=== PATIENT | male | born 1960 | race African-American/Black ===

== ENCOUNTER 2020-05-24 17:31 | Emergency (ER) | payer MEDICARE, MEDICAID ==
[~2020-05-24] VITALS: Ht 177.8 cm; Wt 95.3 kg
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
[2020-05-24 17:54] VITALS: BP 127/88
[2020-05-24] MEDS ORDERED: Acetaminophen 500mg (ES) tab ORAL ONE (18:00)
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
[2020-05-24] MEDS ORDERED: TYLENOL325 MG ORAL (18:23)
[2020-05-24] MEDS ORDERED: IBUPROFEN600 M1 ORAL (18:23)
--- NOTE | 2020-05-24 18:50 | Diagnostic Imaging Report ---
EXAM: CT Head Without Intravenous Contrast CLINICAL HISTORY: H/A TECHNIQUE: Axial computed tomography images of the head/brain without intravenous contrast. CTDI is 53.4 mGy and DLP is 992.1 mGy-cm. One or more of the following dose reduction techniques were used: automated exposure control, adjustment of the mA and/or kV according to patient size, use of iterative reconstruction technique. COMPARISON: No relevant prior studies available. FINDINGS: Brain: No hemorrhage, edema or evidence of mass-effect. No significant white matter disease. Ventricles: No ventriculomegaly. Bones/joints: Partially visualized chronic left medial orbital wall fracture with slight herniation of the medial left rectus muscle through the fracture defect (coronal 10, ochoa images). No acute fracture. Soft tissues: Unremarkable. Sinuses: Unremarkable as visualized. Mastoid air cells: No mastoid effusion. Orbits: Symmetric. IMPRESSION: 1. No acute intracranial process. 2. Incidental note is made of a partially visualized prior/chronic left medial orbital wall fracture with slight herniation of the medial rectus muscle through the fracture defect.
--- NOTE | 2020-05-24 19:01 | NUR ---
HAND-OFF: Report given to Quita ROSE.
[2020-05-24 19:07] VITALS: BP 120/87
--- NOTE | 2020-05-24 19:07 | NUR ---
ER DISCHARGE NOTE: Patient is cleared to be discharged per ERMD, pt is aox4, on room air, with stable vital signs. pt was given dc and prescription instructions, pt was able to verbalize understanding, pt id band removed. pt is able to ambulate with steady gait. pt took all belongings. Pt provided insrtuctions and guided hwo t use it.
--- NOTE | 2020-05-25 12:58 | Diagnostic Imaging Report ---
Indication: Right ankle pain Technique: 3 views of the right ankle Comparison: none Findings: There is widening of the medial ankle mortise. No tibial fracture or talar fracture demonstrated. There is bony protrusion of the anteromedial distal fibular diaphysis. There is some irregularity of the adjacent tibial cortex. Impression: Positive for distal fibular fracture. This agrees with the preliminary interpretation reported by the emergency room physician in the electronic medical record Widening of the medial ankle mortise, indicative of ligamentous injury Incidental finding of bone protrusion of the anteromedial fibular cortex. Uncertain as to whether this represents an osteochondroma, versus a traction osteophyte related to the interosseous ligament; irregularity of the adjacent tibial cortex suggests the latter
== END 2020-05-24 19:08 | disposition home or self-care (01) ==
LOC: EMR 18:00
DX: S82.424A Nondisplaced transverse fracture of shaft of right fibula, initial encounter for closed fracture (principal); S02.832A Fracture of medial orbital wall, left side, initial encounter for closed fracture; V43.62XA Car passenger injured in collision with other type car in traffic accident, initial encounter; Y92.411 Interstate highway as the place of occurrence of the external cause
CPT/HCPCS: 29515; 70450; 99284